=== PATIENT | female | born 1935 | race Caucasian/White ===

== ENCOUNTER 2016-05-17 11:09 | Emergency (ER) | payer MEDICARE, BC ==
[~2016-05-17] VITALS: Ht 160 cm; Wt 64.5 kg
[~2016-05-17 11:09] MED LIST: ALPRAZOLAM0.5 M2 PO; ALPRAZOLAM1 MG PO; AMLODIPINE5 MG PO; ASPIR-LOW81 MG PO; ASPIR-LOX325 MG PO; ASPIRIN E.C. 8181 MG PO; BENTYL 20MG20 MG/TAB PO; DARVOCET N 101 UDTAB PO; DARVOCET-N-101 UDTAB PO; DARVON PO; DETROL; DETROL LA2 MG PO; DETROL LA4 PO; HYZAAR; HYZAAR 25 MG-101 TAB PO; LEVOTHYROXINE PO; LEVSIN 0.10.125 MG/T PO; LISINOPRIL1 POW; LOTREL 10 MG-201 CAP PO; METFORMIN500 MG PO; MOBIC15 MG PO; NORVASC10 MG PO; POTASSIUM CHLO10 ME1 PO; PRILOSEC 20MG20 MG PO; PROPOXYPHENE PO; PROTONIX 40MG T40 MG PO; PROTONIX40 MG PO; RELAFEN 50500 MG/TAB PO; SERTRALINE25 MG PO; SYNTHROID 0.10.15 MG PO; TERAZOSIN HCL PO; ZOLOFT100 MG PO; [UNRECOGNIZED DRUG - OTHER]; [UNRECOGNIZED DRUG - OTHER] PO
[2016-05-17 11:11] VITALS: TEMP 97.6
[2016-05-17] MEDS ORDERED: ULTRAM 50MG TAB50 MG PO (11:39)
[2016-05-17] MEDS ORDERED: ZOFRAN8 MG PO (11:41)
[2016-05-17 11:50] LABS: BASO # 0.1 (0.0-0.2); BASO % 1.2 % (0.0-2.0); EOS # 0.4 (0.0-0.7); EOS % 6.4 % (0-4.0); GRAN # 2.9 (1.4-6.5); GRAN % 51.7 % (42.2-75.2); LYMPH # 1.5 (1.2-3.4); LYMPH % 26.6 % (20.0-51.0); MEAN CELL VOLUME 93 fl (80.0-100.0); MEAN CORPUSCULAR HGB CONC 33 g/dl (33.0-37.0); MEAN PLATELET VOLUME 9.2 fl (7.4-10.4); MONO # 0.8 (0.1-0.6); MONO % 13.9 % (1.7-9.3); PLATELET COUNT 199 K/mm3 (130-400); REDCELL DISTRIBUTION WIDTH-CV 12.3 % (11.5-14.5); WHITE BLOOD COUNT 5.6 K/mm3 (4.8-10.8)
[2016-05-17 11:54] LABS: HEMATOCRIT 28.8 % (37.0-47.0); HEMOGLOBIN 9.4 g/dl (12.5-16.0); MEAN CORPUSCULAR HEMOGLOBIN 30 pg (27.0-31.0)
[2016-05-17 12:07] LABS: ADJUSTED CALCIUM 9.2 mg/dL (8.4-10.2); ALANINE AMINOTRANSFERASE 29 U/L (9-52); ALKALINE PHOSPHATASE 60 U/L (50-136); ANION GAP 10 mmol/L (7-16); BILIRUBIN,TOTAL 0.7 mg/dL (0.0-1.0); BLOOD UREA NITROGEN 47 mg/dL (7-17); CALCIUM 9.2 mg/dL (8.4-10.2); CARBON DIOXIDE 22 mmol/L (22-30); CHLORIDE 106 mmol/L (98-107); CREATININE, serum 1.98 mg/dL (0.52-1.25); GLUCOSE 91 mg/dL (74-106); LIPASE 98 U/L (23-300); POTASSIUM 4.2 mmol/L (3.4-5.0); SODIUM 138 mmol/L (137-145); TOTAL PROTEIN 7.4 gm/dL (6.4-8.2)
[2016-05-17 12:10] LABS: C-REACTIVE PROTEIN < 0.5 mg/dL (0.0-0.9)
[2016-05-17 12:13] LABS: B-TYPE NATRIURETIC PEPTIDE 2060 pg/mL (0-450)
[2016-05-17 12:18] LABS: TROPONIN-I < 0.012 ng/mL (0.000-0.034)
[2016-05-17 12:19] LABS: ERYTHROCYTE SEDIMENTATION RATE 28 mm/hr (0-30)
[2016-05-17] MEDS ORDERED: LASIX 20MG TABL20 MG PO (13:04)
[2016-05-17 13:05] LABS: PH 5 (5-8); URINE APPEARANCE Hazy; URINE BACTERIA Many /hpf; URINE BILIRUBIN Negative (NEGATIVE); URINE BLOOD 1+ (NEGATIVE); URINE COLOR Yellow; URINE GLUCOSE Negative (NEGATIVE); URINE KETONE Negative (NEGATIVE); URINE RBC 0-2 /hpf; URINE UROBILINOGEN Negative (NEGATIVE)
[2016-05-17] MEDS ORDERED: PHENERGAN 25 TA25 MG PO (13:43)
[2016-05-17 14:00] VITALS: BP 118/52; PULSE 80
[2016-05-19] MEDS ORDERED: CEFTIN500 MG PO (10:17)
== END 2016-05-17 14:18 | disposition home or self-care (01) ==
LOC: COL.ER 11:09
PROVIDERS: Emergency Medicine
DX: J06.9 Acute upper respiratory infection, unspecified (principal); E11.22 Type 2 diabetes mellitus with diabetic chronic kidney disease; I12.9 Hypertensive chronic kidney disease with stage 1 through stage 4 chronic kidney disease, or unspecified chronic kidney disease; N18.9 Chronic kidney disease, unspecified; D64.9 Anemia, unspecified; R51 Headache; R79.89 Other specified abnormal findings of blood chemistry; Z79.84 Long term (current) use of oral hypoglycemic drugs
CPT/HCPCS: J1170; J2405; J7030

== ENCOUNTER 2016-06-15 15:00 | Outpatient (RCR) | payer MEDICARE, BC ==
[2016-05-29 15:30] LABS: RETIC % 1.9 % (0.5-3.52)
[2016-05-29 15:36] VITALS: BP 123/48; PULSE 74; TEMP 98
[2016-05-29 15:52] LABS: TOTAL IRON BINDING CAPACITY 256 ug/dL (265-497)
[2016-05-29 16:20] LABS: FERRITIN 83 ng/mL (11-264)
[2016-06-05 15:20] VITALS: BP 141/46; PULSE 70; TEMP 98.2
[2016-06-12 15:06] VITALS: BP 119/45; PULSE 78; TEMP 98.3
[~2016-06-15] VITALS: Ht 160 cm; Wt 65.5 kg
[~2016-06-15 15:00] MED LIST changes: +CEFTIN500 MG PO; +LASIX 20MG TABL20 MG PO; +PHENERGAN 25 TA25 MG PO; +ULTRAM 50MG TAB50 MG PO; +ZOFRAN8 MG PO
[2016-06-15 15:33] VITALS: BP 122/64; PULSE 71; TEMP 98.1
== END 2016-08-27 | disposition home or self-care (01) ==
LOC: EUO
PROVIDERS: Internal Medicine
DX: D50.8 Other iron deficiency anemias (principal)
CPT/HCPCS: J2916

== ENCOUNTER → 2017-03-04 | Outpatient (CLI) | payer MEDICARE, BC | LOC: MC.RAD 02-28 13:00 | DX: Z12.31 Encounter for screening mammogram for malignant neoplasm of breast (principal); N63.21 Unspecified lump in the left breast, upper outer quadrant ==

== ENCOUNTER → 2017-03-21 | Outpatient (CLI) | payer MEDICARE, BC | LOC: MC.RAD 12:51 | DX: N64.89 Other specified disorders of breast (principal); R92.2 Inconclusive mammogram ==

== ENCOUNTER 2017-07-12 10:11 | Observation (INO) | payer MEDICARE, BC ==
[~2017-07-12] VITALS: Ht 160 cm; Wt 69.7 kg
[~2017-07-12 10:11] MED LIST changes: -ALPRAZOLAM1 MG PO; +BENTYL 10MG10 MG/CAP PO; +CEPHALEXIN500 M1 PO; +GLUCOPHAGE XR500 M1 PO; +LOMOTIL 0.025 M1 TAB PO; -METFORMIN500 MG PO; +MULTI VITAMINS1 TAB PO; +NORVASC 10MG10 MG PO; +VITAMIN D 1001000 IU PO; +XANAX 1MG1 MG PO; +ZOFRAN 4MG T4 MG/TAB PO
[2017-07-12 10:29] LABS: BASO # 0.1 (0.0-0.2); BASO % 0.9 % (0.0-2.0); EOS # 0.2 (0.0-0.7); EOS % 1.7 % (0-4.0); GRAN # 7.1 (1.4-6.5); GRAN % 77.1 % (42.2-75.2); LYMPH # 1.1 (1.2-3.4); LYMPH % 11.8 % (20.0-51.0); MEAN CELL VOLUME 93 fl (80.0-100.0); MEAN CORPUSCULAR HGB CONC 32 g/dl (33.0-37.0); MONO # 0.8 (0.1-0.6); MONO % 8.3 % (1.7-9.3); PLATELET COUNT 204 K/mm3 (130-400); RED BLOOD COUNT 3.47 M/mm3 (4.10-5.30); REDCELL DISTRIBUTION WIDTH-CV 13.4 % (11.5-14.5)
[2017-07-12 10:31] LABS: HEMATOCRIT 32.3 % (37.0-47.0); HEMOGLOBIN 10.3 g/dl (12.5-16.0); MEAN CORPUSCULAR HEMOGLOBIN 30 pg (27.0-31.0)
[2017-07-12 10:38] LABS: PROTHROMBIN TIME 12.1 SECONDS (9.7-12.8)
[2017-07-12 11:30] LABS: ALBUMIN 3.8 gm/dL (3.5-5.0); BILIRUBIN,TOTAL 0.5 mg/dL (0.0-1.0); CALCIUM 8.8 mg/dL (8.4-10.2); CREATININE, serum 1.52 mg/dL (0.52-1.25); POTASSIUM 4.5 mmol/L (3.4-5.0)
[2017-07-12 11:42] LABS: TROPONIN-I 0.015 ng/mL (0.000-0.034)
[2017-07-12] MEDS ORDERED: LASIX 20MG TABL20 MG PO (12:02)
[2017-07-12] MEDS ORDERED: MICRO-K 10 EXT10 MEQ PO (12:02)
[2017-07-12] MEDS ORDERED: MOBIC15 MG PO (13:03)
[2017-07-12] MEDS ORDERED: K-TAB10 (13:04)
[2017-07-12 14:54] LABS: TSH w REFLEX 0.019 uIU/mL (0.465-4.680)
[2017-07-12 16:00] VITALS: BP 179/64; PULSE 83; TEMP 97.9
[2017-07-12] MEDS ORDERED: VITAMIN D 1001000 IU PO (16:02)
[2017-07-12] MEDS ORDERED: MULTI VITAMINS1 TAB PO (16:05)
[2017-07-12] MEDS ORDERED: ZOLOFT 100MG100 MG PO (16:07)
[2017-07-12] MEDS ORDERED: BENTYL 10MG10 MG/CAP PO (16:09)
[2017-07-12] MEDS ORDERED: CEPHALEXIN500 M1 PO (16:11)
[2017-07-12 16:29] VITALS: BP 179/64; PULSE 83; TEMP 97.9
[2017-07-12 18:39] LABS: COLLECTION METHOD CLEAN CATCH
[2017-07-12 18:48] LABS: PH 6 (5-8); SQUAMOUS EPITHELIAL 0-2 /hpf; URINE APPEARANCE Clear; URINE BACTERIA None Seen /hpf; URINE BILIRUBIN Negative (NEGATIVE); URINE BLOOD Negative (NEGATIVE); URINE COLOR Colorless; URINE GLUCOSE Negative (NEGATIVE); URINE KETONE Negative (NEGATIVE); URINE LEUKOCYTE ESTERASE Negative (NEGATIVE); URINE NITRATE Negative (NEGATIVE); URINE PROTEIN(semi-quant) Negative (NEGATIVE); URINE RBC None Seen /hpf; URINE UROBILINOGEN Negative (NEGATIVE)
[2017-07-12 19:17] LABS: PARTIAL THROMBOPLASTIN TIME 32.3 SECONDS (26.0-37.0)
[2017-07-12 19:46] VITALS: BP 117/66; BP 154/51; PULSE 84; PULSE 92; TEMP 98.5; TEMP 99.1
[2017-07-12 23:36] VITALS: BP 153/57; PULSE 79; TEMP 98.5
[2017-07-13 04:07] LABS: BASO # 0.1 (0.0-0.2); BASO % 1.5 % (0.0-2.0); EOS # 0.3 (0.0-0.7); EOS % 4.9 % (0-4.0); GRAN # 3.8 (1.4-6.5); GRAN % 55.5 % (42.2-75.2); LYMPH # 1.9 (1.2-3.4); LYMPH % 27.8 % (20.0-51.0); MEAN CELL VOLUME 90 fl (80.0-100.0); MEAN CORPUSCULAR HGB CONC 33 g/dl (33.0-37.0); MEAN PLATELET VOLUME 8.8 fl (7.4-10.4); MONO # 0.7 (0.1-0.6); MONO % 10.2 % (1.7-9.3); PLATELET COUNT 198 K/mm3 (130-400); RED BLOOD COUNT 3.34 M/mm3 (4.10-5.30); REDCELL DISTRIBUTION WIDTH-CV 13.1 % (11.5-14.5)
[2017-07-13 04:08] LABS: MEAN CORPUSCULAR HEMOGLOBIN 30 pg (27.0-31.0)
[2017-07-13 04:13] VITALS: BP 153/54; PULSE 80; TEMP 98.3
[2017-07-13 04:28] LABS: PARTIAL THROMBOPLASTIN TIME 253.2 SECONDS (26.0-37.0)
[2017-07-13 04:40] LABS: CALCIUM 8.9 mg/dL (8.4-10.2); CREATININE, serum 1.52 mg/dL (0.52-1.25); MAGNESIUM 1.6 mg/dL (1.6-2.3); PHOSPHOROUS 4.4 mg/dL (2.5-4.5); POTASSIUM 4.1 mmol/L (3.4-5.0)
[2017-07-13 07:22] VITALS: BP 162/64; PULSE 86; TEMP 98.2
[2017-07-13 07:44] LABS: PARTIAL THROMBOPLASTIN TIME 134.9 SECONDS (26.0-37.0)
[2017-07-13 11:52] VITALS: BP 172/61; PULSE 78; TEMP 98.1
[2017-07-13 15:24] VITALS: BP 154/68; PULSE 82; TEMP 98.2
[2017-07-13] MEDS ORDERED: PLAVIX 75MG TAB75 MG PO (18:14)
[2017-07-13] MEDS ORDERED: ZEBETA10 MG PO (18:15)
[2017-07-13] MEDS ORDERED: HYZAAR 25 MG-101 TAB PO (18:17)
== END 2017-07-13 18:55 | disposition home or self-care (01) ==
LOC: COL.ER 10:11 → MEDICAL 12:17
PROVIDERS: Family Medicine; Internal Medicine; Physician Assistant
DX: I13.0 Hypertensive heart and chronic kidney disease with heart failure and stage 1 through stage 4 chronic kidney disease, or unspecified chronic kidney disease (principal); I50.9 Heart failure, unspecified; N18.4 Chronic kidney disease, stage 4 (severe); E11.22 Type 2 diabetes mellitus with diabetic chronic kidney disease; I35.0 Nonrheumatic aortic (valve) stenosis; Z86.73 Personal history of transient ischemic attack (TIA), and cerebral infarction without residual deficits; E03.9 Hypothyroidism, unspecified; N39.3 Stress incontinence (female) (male); N39.0 Urinary tract infection, site not specified; B95.0 Streptococcus, group A, as the cause of diseases classified elsewhere; R79.89 Other specified abnormal findings of blood chemistry; D50.9 Iron deficiency anemia, unspecified; F41.9 Anxiety disorder, unspecified; F32.9 Major depressive disorder, single episode, unspecified; Z87.11 Personal history of peptic ulcer disease; Z79.82 Long term (current) use of aspirin; Z79.84 Long term (current) use of oral hypoglycemic drugs; Z88.2 Allergy status to sulfonamides; Z88.1 Allergy status to other antibiotic agents; Z88.5 Allergy status to narcotic agent; Z88.7 Allergy status to serum and vaccine; Z88.8 Allergy status to other drugs, medicaments and biological substances
CPT/HCPCS: 99222-AI; 99239; A9539; A9540; J1644; J1940

== ENCOUNTER 2017-10-25 14:05 | Outpatient (RCR) | payer MEDICARE, BC ==
[~2017-10-25 14:05] MED LIST changes: +K-TAB10; +MICRO-K 10 EXT10 MEQ PO; +PLAVIX 75MG TAB75 MG PO; +ZEBETA10 MG PO; +ZOLOFT 100MG100 MG PO
[2017-10-27] MEDS ORDERED: BENTYL 10MG10 MG/CAP PO (12:27)
[2017-10-27] MEDS ORDERED: PRILOTC (12:28)
== END 2017-12-09 13:28 | disposition home or self-care (01) ==
LOC: COL.CR 14:05
DX: Z48.812 Encounter for surgical aftercare following surgery on the circulatory system (principal); Z95.2 Presence of prosthetic heart valve; I35.0 Nonrheumatic aortic (valve) stenosis

== ENCOUNTER 2017-10-27 11:44 | Emergency (ER) | payer MEDICARE, BC ==
[~2017-10-27] VITALS: Ht 160 cm; Wt 63.3 kg
[2017-10-27 11:49] VITALS: TEMP 97.4
[2017-10-27 12:10] LABS: COLLECTION METHOD CATHETER
[2017-10-27 12:15] LABS: PH 6 (5-8); SQUAMOUS EPITHELIAL None Seen /hpf; URINE APPEARANCE Clear; URINE BACTERIA None Seen /hpf; URINE BILIRUBIN Negative (NEGATIVE); URINE BLOOD 1+ (NEGATIVE); URINE COLOR Straw; URINE GLUCOSE Negative (NEGATIVE); URINE KETONE Negative (NEGATIVE); URINE LEUKOCYTE ESTERASE Negative (NEGATIVE); URINE NITRATE Negative (NEGATIVE); URINE PROTEIN(semi-quant) Negative (NEGATIVE); URINE RBC 0-2 /hpf; URINE UROBILINOGEN Negative (NEGATIVE)
[2017-10-27] MEDS ORDERED: BENTYL 10MG10 MG/CAP PO (12:27)
[2017-10-27] MEDS ORDERED: PRILOTC (12:28)
[2017-10-27 12:59] VITALS: BP 177/75; PULSE 81
== END 2017-10-27 13:00 | disposition home or self-care (01) ==
LOC: COL.ER 11:44
PROVIDERS: Physician Assistant
DX: N81.4 Uterovaginal prolapse, unspecified (principal); I10 Essential (primary) hypertension; Z79.82 Long term (current) use of aspirin

== ENCOUNTER → 2018-03-27 | Outpatient (CLI) | payer MEDICARE, BC ==
[~2018-03-27] MED LIST changes: +PRILOTC
== END ==
LOC: MC.RAD 09:20
DX: Z12.31 Encounter for screening mammogram for malignant neoplasm of breast (principal)

== ENCOUNTER → 2019-03-30 | Outpatient (CLI) | payer MEDICARE, BC | LOC: MC.RAD 13:19 | DX: Z12.31 Encounter for screening mammogram for malignant neoplasm of breast (principal) ==

== ENCOUNTER → 2020-12-01 | Outpatient (CLI) | payer MEDICARE, BC ==
[~2020-12-01] MED LIST changes: +CEFTIN 250250 MG/TAB PO
== END ==
LOC: MC.RAD 12:57
DX: Z12.31 Encounter for screening mammogram for malignant neoplasm of breast (principal)